=== PATIENT | male | born 1985 | race Caucasian/White ===

== ENCOUNTER 2019-11-21 09:16 | Day surgery (SDC) | payer BC ==
[2019-11-18 11:15] VITALS: BMI 28.2
[~2019-11-21 09:16] MED LIST: LACTATED RINGERS 1,000 ML IV SCH; LIDOCAINE 1% (10MG/ML) FOR IV START INTRADERMA PRN
[2019-11-21 09:48] VITALS: TEMP 96.8
[2019-11-21] MEDS ORDERED: PROPOFOL 10 MG/ML 20 ML VIAL IV ONE (10:16)
--- NOTE | 2019-11-21 10:18 | P.GSHP ---
History of Present Illness H&P Date: 11/21/19 Chief Complaint: History of colon polyps This a 34-year-old male presents today for colonoscopy. Patient has previous history: Polyps. He denies any significant GI complaints.. Past Medical History Past Medical History: Hypertension Additional Past Medical History / Comment(s): hx polyps, occ abdominal "discomfort", hx norovirus, recent change in bowel movements, "borderline cholesterol", on antibiotic for abscess tooth. abscess cleared up and will finish rx before procedure History of Any Multi-Drug Resistant Organisms: None Reported Past Surgical History: Hernia Repair Additional Past Surgical History / Comment(s): colnoscopy, Past Anesthesia/Blood Transfusion Reactions: No Reported Reaction Smoking Status: Current every day smoker - Past Family History Mother Family Medical History: No Reported History Medications and Allergies Home Medications Medication Instructions Recorded Confirmed Type Amlodipine(Dose Unknown) 1 tab PO QAM 11/18/19 11/21/19 History Ibuprofen 200 mg PO Q8H PRN 11/18/19 11/21/19 History Allergies Allergy/AdvReac Type Severity Reaction Status Date / Time strawberry Allergy Nausea Verified 11/21/19 09:29 Surgical - Exam Vital Signs Temp Pulse Resp BP Pulse Ox 96.8 F L 56 L 16 130/71 98 11/21/19 09:33 11/21/19 09:33 11/21/19 09:33 11/21/19 09:33 11/21/19 09:33 - General well developed, well nourished, no distress - Eyes PERRL - ENT normal pinna, normal nares - Neck no masses - Respiratory normal expansion - Cardiovascular Rhythm: regular - Abdomen Abdomen: soft, non tender Assessment and Plan Assessment: History of colon polyps. We'll perform colonoscopy.
--- NOTE | 2019-11-21 10:26 | P.OP ---
Date of Procedure: 11/21/19 Preoperative Diagnosis: History of colon polyps Postoperative Diagnosis: Normal colonoscopy Procedure(s) Performed: Colonoscopy Anesthesia: MAC Surgeon: Baron Nina Pathology: none sent Condition: stable Disposition: PACU Description of Procedure: W PROCEDURE: The patient was placed on the endoscopy table in the lateral position. Digital rectal examination was performed which revealed no abnormalities. The prostate was symmetrical without nodules. Flexible colonoscope was then placed in the patient's anus and passed throughout the entire colon. The ileocecal valve was visualized. The cecum, ascending, transverse, descending and sigmoid colon were normal. The rectum was normal as well. There were no masses, polyps or diverticula noted in the entire colon. SUMMARY OF FINDINGS: Normal colonoscopy.
[2019-11-21] MEDS ORDERED: IV FLUID CONTINUATION 500 ML IV ONE (10:30)
[2019-11-21 10:57] VITALS: BP 114/75; PULSE 78; RESP 20
== END 2019-11-21 11:19 | disposition home or self-care (01) ==
LOC: ORWHC2ENDO 09:16
PROVIDERS: ATTEND Surgery
DX: Z12.11 Encounter for screening for malignant neoplasm of colon (principal); Z86.010 Personal history of colon polyps; M25.569 Pain in unspecified knee; M79.669 Pain in unspecified lower leg; E78.5 Hyperlipidemia, unspecified; E78.00 Pure hypercholesterolemia, unspecified; I10 Essential (primary) hypertension; K58.9 Irritable bowel syndrome, unspecified; N52.9 Male erectile dysfunction, unspecified; F17.210 Nicotine dependence, cigarettes, uncomplicated; E66.9 Obesity, unspecified; K08.89 Other specified disorders of teeth and supporting structures; Z86.69 Personal history of other diseases of the nervous system and sense organs; Z68.28 Body mass index [BMI] 28.0-28.9, adult; Z87.09 Personal history of other diseases of the respiratory system; Z87.440 Personal history of urinary (tract) infections; Z79.899 Other long term (current) drug therapy; Z86.19 Personal history of other infectious and parasitic diseases; Z87.19 Personal history of other diseases of the digestive system; Z98.890 Other specified postprocedural states; Z91.018 Allergy to other foods
CPT/HCPCS: G0105; J2704; 45378

== ENCOUNTER → 2023-02-20 | Outpatient (CLI) | payer BC ==
--- NOTE | 2023-02-20 12:11 | XR ---
EXAMINATION TYPE: XR knee complete RT DATE OF EXAM: 02/20/2023 12:00 PM CLINICAL INDICATION:Male, 37 years old with history of M17.11 UNILATERAL PRIMARY OSTEOARTHRITIS, RIGH T KN; PHH COMPARISON: None. TECHNIQUE: XR knee complete RT; examined in Frontal, lateral and oblique projections. FINDINGS: No evidence of any acute osseous pathology, soft tissue swelling, or joint effusion is no alfa. Osseous formation involving the tibia plateau and patella. Mild joint space narrowing. A fabella is present. IMPRESSION: 1. No acute osseous pathology. 2. Mild osteoarthritic changes.
== END | disposition home or self-care (01) ==
LOC: RADXRMAIN 11:38
PROVIDERS: ATTEND Family Medicine
DX: M17.11 Unilateral primary osteoarthritis, right knee (principal)